=== PATIENT | female | born 1955 | race American Indian/Alaskan Native ===

== ENCOUNTER 2017-01-15 14:13 | Emergency (ER) | payer OTHER ==
--- NOTE | 2017-01-15 16:12 | Emergency Department Report ---
Chief Complaint: Headache Stated Complaint: HIGH BLOOD PRESSURE Time Seen by Provider: 01/15/17 16:08 - HPI History of Present Illness: PT states she has had headache x 3-4 days. Pt states she has not taken her bp medication x 1 week. PT states she found some old bp medication and she took it. PT took her RX for lisinopril - ROS Review of Systems: + headache - chest pain - Exam Physical Exam: pt is alert and appropriate gcs 15 no focal weakness MSE screening note: Focused history and physical exam performed. Due to findings the following was ordered: ct head, labs ED Disposition for MSE Condition: Stable
[2017-01-15 16:13] VITALS: BP 172/105
[2017-01-15 16:45] LABS: Basophils % (Auto) 0.9 % (0.0-1.8); Eosinophils % (Auto) 0.8 % (0.0-4.3); Hematocrit 46.5 % (30.3-42.9); Hemoglobin 16.1 gm/dl (10.1-14.3); Mean Corpuscular HGB Conc 35 % (30-34); Mean Corpuscular Hemoglobin 32 pg (28-32); Mean Corpuscular Volume 92 fl (79-97); Platelet Count 384 K/mm3 (140-440); Red Blood Count 5.06 M/mm3 (3.65-5.03); Red Cell Distribution Width 14.2 % (13.2-15.2); White Blood Count 8.8 K/mm3 (4.5-11.0)
[2017-01-15 16:56] LABS: Anion Gap 23 mmol/L; BUN/Creatinine Ratio 23.33; Blood Urea Nitrogen 14 mg/dL (7-17); Calcium 10.7 mg/dL (8.4-10.2); Carbon Dioxide 24 mmol/L (22-30); Chloride 96.8 mmol/L (98-107); Glucose 120 mg/dL (65-100); Potassium 4.4 mmol/L (3.6-5.0); Sodium 139 mmol/L (137-145)
--- NOTE | 2017-01-15 17:47 | Cat Scan Report ---
FINAL REPORT EXAM: CT HEAD/BRAIN WO CON HISTORY: headache, htn TECHNIQUE: Noncontrast serial axial images from skull base to vertex. PRIORS: None. FINDINGS: There is no mass effect or midline shift. There are no abnormal intra or extra-axial fluid collections. Cortical sulci and lateral ventricles are within normal limits for size and configuration. Basilar cisterns are patent. No acute intracranial hemorrhage is identified. Foci of relative hypodensity are noted in the periventricular white matter. Visualized paranasal sinuses and mastoid air cells are well aerated. No acute osseous abnormality is identified. IMPRESSION: 1. No abnormal mass or acute intracranial hemorrhage is identified. 2. Areas of relative hypodensity are seen in the white matter of the cerebral hemispheres. This is a nonspecific finding. It may be related to chronic ischemic change from small vessel disease.
--- NOTE | 2017-01-15 18:17 | Emergency Department Report ---
ED General Adult HPI - General Chief complaint: High BP Stated complaint: HIGH BLOOD PRESSURE Time Seen by Provider: 01/15/17 16:08 Source: patient Mode of arrival: Ambulatory Limitations: No Limitations - History of Present Illness Initial comments: 61-year-old female here with complaint of hypertension. Patient with a headache last week. Was concerned and presented to the emergency department. She has no further symptoms at this time. Denies nausea vomiting chest pain shortness of breath. She has been taking her antihypertensives intermittently. -: Gradual Radiation: non-radiation Improves with: none Worsens with: none Associated Symptoms: denies other symptoms. denies: confusion, chest pain, cough, diaphoresis, fever/chills Treatments Prior to Arrival: none - Related Data Previous Rx's Medication Instructions Recorded Last Taken Type Lisinopril [Zestril TAB] 40 mg PO QDAY #30 tablet 01/15/17 Unknown Rx Allergies Allergy/AdvReac Type Severity Reaction Status Date / Time No Known Allergies Allergy Verified 01/15/17 16:14 ED Review of Systems ROS: Stated complaint: HIGH BLOOD PRESSURE Other details as noted in HPI Comment: All other systems reviewed and negative Constitutional: denies: chills, fever Eyes: denies: eye pain, eye discharge, vision change ENT: denies: ear pain, throat pain Respiratory: denies: cough, shortness of breath, wheezing Cardiovascular: denies: chest pain, palpitations Endocrine: no symptoms reported Gastrointestinal: denies: abdominal pain, nausea, diarrhea Genitourinary: denies: urgency, dysuria, discharge Musculoskeletal: denies: back pain, joint swelling, arthralgia Skin: denies: rash, lesions Neurological: denies: headache, weakness, paresthesias Psychiatric: denies: anxiety, depression Hematological/Lymphatic: denies: easy bleeding, easy bruising ED Past Medical Hx - Past Medical History Previous Medical History?: Yes Hx Hypertension: Yes - Surgical History Past Surgical History?: No - Social History Smoking Status: Never Smoker Substance Use Type: Alcohol - Medications Home Medications: Home Medications Medication Instructions Recorded Confirmed Last Taken Type Lisinopril [Zestril TAB] 40 mg PO QDAY #30 tablet 01/15/17 Unknown Rx ED Physical Exam - General Limitations: No Limitations General appearance: alert, in no apparent distress - Head Head exam: Present: atraumatic, normocephalic - Eye Eye exam: Present: normal appearance - ENT ENT exam: Present: mucous membranes moist - Neck Neck exam: Present: normal inspection - Respiratory Respiratory exam: Present: normal lung sounds bilaterally. Absent: respiratory distress - Cardiovascular Cardiovascular Exam: Present: regular rate, normal rhythm. Absent: systolic murmur, diastolic murmur, rubs, gallop - GI/Abdominal GI/Abdominal exam: Present: soft, normal bowel sounds - Extremities Exam Extremities exam: Present: normal inspection - Back Exam Back exam: Present: normal inspection - Neurological Exam Neurological exam: Present: alert, oriented X3 - Psychiatric Psychiatric exam: Present: normal affect, normal mood - Skin Skin exam: Present: warm, dry, intact, normal color. Absent: rash ED Course Vital Signs 01/15/17 16:10 Temperature 98.5 F Pulse Rate 66 Respiratory 16 Rate Blood Pressure 172/105 O2 Sat by Pulse 100 Oximetry ED Medical Decision Making - Lab Data Result diagrams: 01/15/17 16:19 01/15/17 16:19 Laboratory Results - last 24 hr 01/15/17 01/15/17 16:19 16:19 WBC 8.8 RBC 5.06 H Hgb 16.1 H Hct 46.5 H MCV 92 MCH 32 MCHC 35 H RDW 14.2 Plt Count 384 Lymph % (Auto) 27.1 [place] % (Auto) 6.2 Eos % (Auto) 0.8 Baso % (Auto) 0.9 Lymph # 2.4 [place] # 0.5 Eos # 0.1 Baso # 0.1 Seg Neutrophils % 65.0 Seg Neutrophils # 5.7 Sodium 139 Potassium 4.4 Chloride 96.8 L Carbon Dioxide 24 Anion Gap 23 BUN 14 Creatinine 0.6 L Estimated GFR > 60 BUN/Creatinine Ratio 23.33 Glucose 120 H Calcium 10.7 H - Medical Decision Making 61-year-old female here with complaint of hypertension. She is asymptomatic. She did have a headache last week but does not currently have a headache now. She is a head CT is negative. She hasn't been taking her lisinopril intermittently. I discussed with her the risks of long-term elevations in blood pressure and recommend that she increase her lisinopril 40 mg once a day. I will write her prescription for this and we'll discharge her. She does not have any headache dizziness nausea vomiting blurry vision chest pain or shortness of breath right now. Portions of this chart were dictated with dictation software. There may be dictation errors contained within this note. Critical care attestation.: If time is entered above; I have spent that time in minutes in the direct care of this critically ill patient, excluding procedure time. ED Disposition Clinical Impression: Hypertension Disposition: DC-01 TO HOME OR SELFCARE Is pt being admited?: No Condition: Stable Instructions: Hypertension (ED) Additional Instructions: Follow-up with your primary care doctor in 1 month to repeat your blood pressure. Prescriptions: Lisinopril [Zestril TAB] 40 mg PO QDAY #30 tablet [facility]: [facility] [Other] - 3-5 Days
== END 2017-01-15 18:25 | disposition home or self-care (01) ==
LOC: ED 14:13
DX: I10 Essential (primary) hypertension (principal)
CPT/HCPCS: 36415; 70450; 80048; 85025